=== PATIENT | female | born 1980 | race Hispanic/Latino ===

== ENCOUNTER 2018-05-22 20:02 | Emergency (ER) | payer OTHER ==
[2018-05-22 20:05] VITALS: BP 122/83
--- NOTE | 2018-05-22 21:16 | ED UPPER/LOWER EXTREMITY COMPL ---
History of Present Illness General Chief Complaint: Animal/Insect Bite Stated Complaint: "BIT BY DOG ON RT THUMB" Source: patient Exam Limitations: no limitations Vital Signs & Intake/Output Vital Signs & Intake/Output Vital Signs Date Time Temp Pulse Resp B/P B/P Pulse O2 O2 Flow FiO2 Mean Ox Delivery Rate 05/22 2005 96.0 91 18 122/83 96 Room Air Allergies Coded Allergies: No Known Allergies (05/22/18) Triage Note: PT TO TRIAGE S/P DOG BITE TO R THUMB, PT IS A BRICK BURNER HEAD, DOG IS UTD ON SHOTS. PT STATES LAST TETANUS 2 YEARS AGO. NO PUNCTURE JARRETT NOTED IN TRIAGE, NO ACTIVE BLEEDING. Triage Nurses Notes Reviewed? 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 No fevers or purulent discharge noted (Cisco Orellana) Reconcile Medications Cephalexin (Keflex) 500 MG CAPSULE 1 CAP PO BID DOG BITE (Linn MARTINEZ,Lauro) Past History Travel History Traveled to [place] past 21 day No Medical History Any Pertinent Medical History? none Neurological: NONE EENT: NONE Cardiovascular: NONE Respiratory: NONE Gastrointestinal: NONE Hepatic: NONE Renal: NONE Musculoskeletal: NONE Psychiatric: NONE Endocrine: NONE Blood Disorders: NONE Cancer(s): NONE RELATIONS COORDINATOR/Reproductive: NONE Surgical History Surgical History: non-contributory Psychosocial History What is your primary language [place] Tobacco Use: Never used ETOH Use: denies use Family History Hx Contributory? No (Cisco Orellana) Review of Systems Review of Systems Constitutional: Reports: no symptoms. EENTM: Reports: no symptoms. Respiratory: Reports: no symptoms. Cardiovascular: Reports: no symptoms. Gastrointestinal/Abdominal: Reports: no symptoms. Genitourinary: Reports: no symptoms. Musculoskeletal: Reports: see HPI. Skin: Reports: see HPI. Neurological/Psychological: Reports: no symptoms. Hematologic/Endocrine: Reports: no symptoms. Immunological: Reports: no symptoms. All Other Systems: Reviewed and Negative (Cisco Orellana) Physical Exam Physical Exam General Appearance: no apparent distress, alert, comfortable Head: atraumatic Eyes: Bilateral: normal appearance. Ears, Nose, Throat: hearing grossly normal Cardiovascular/Respiratory: no respiratory distress Peripheral Pulses: 2+ radial (R) Neurologic/Tendon: normal sensation, normal motor functions, normal tendon functions, responds to pain, no evidence tendon injury, no pulse deficit Skin: intact, normal color, warm/dry Diagram Hands Back 1) Noted well-healing puncture wound with mild surrounding swelling with no erythema discharge dermatomes intact full active range of motion with thumb (Cisco Orellana) Progress Differential Diagnosis: arterial insufficiency, contusion, dislocation, fracture , gout, septic arthritis, sprain, tendon injury Plan of Care: No concerns of infection at this time swelling is most likely due to inflammation patient was up-to-date on her immunizations and the dog's immunization Patient's thumb has full active range of motion and no concerns of septic arthritis (Cisco Orellana) Departure Departure Disposition: HOME OR SELF CARE Condition: Stable Clinical Impression Primary Impression: Dog bite of right thumb Referrals: Unknown (PCP/Family) Additional Instructions: As discussed if you note signs infection redness, swelling, pain, discharge or developing new concerning symptom, return to emergency room, begin the prescription of Keflex for the full course Prescriptions waiting at [facility] Departure Forms: Customer Survey General Discharge Information Prescriptions: Current Visit Scripts Cephalexin (Keflex) 1 CAP PO BID #[id number] CAP (Cisco Orellana) PA/DECKER OPERATOR Co-Sign Statement Statement: ED Attending supervision documentation- I saw and evaluated the patient. I have also reviewed all the pertinent lab results and diagnostic results. I agree with the findings and the plan of care as documented in the PA's/DECKER OPERATOR's documentation. x I have reviewed the ED Record and agree with the PA's/DECKER OPERATOR's documentation. [] Additions or exceptions (if any) to the PAs/DECKER OPERATOR's note and plan are summarized below: [] (Linn MARTINEZ,Lauro)
[2018-05-22] MEDS ORDERED: KEFLEX500 M1 PO (21:37)
== END 2018-05-22 22:09 ==
LOC: ERH 20:02
DX: S61.051A Open bite of right thumb without damage to nail, initial encounter (principal); W54.0XXA Bitten by dog, initial encounter; Y92.89 Other specified places as the place of occurrence of the external cause; Y93.89 Activity, other specified